=== PATIENT | female | born 1955 | race Two or more races ===

== ENCOUNTER 2019-12-28 13:47 | Outpatient (REF) | payer OTHER, SELFPAY | END 2019-12-28 13:48 | disposition home or self-care (01) | LOC: HO.LAB 13:47 | PROVIDERS: PCP Internal Medicine; Visit Provider Internal Medicine | DX: Z20.828 Contact with and (suspected) exposure to other viral communicable diseases (principal) | CPT/HCPCS: C9803; U0003 ==

== ENCOUNTER 2020-03-30 10:00 | Outpatient (RCR) | payer OTHER, SELFPAY | END 2020-05-15 13:45 | disposition other institution (70) | LOC: HO.PT 10:00 | PROVIDERS: Visit Provider Internal Medicine | DX: M54.5 Low back pain (principal); M54.2 Cervicalgia; M25.561 Pain in right knee | CPT/HCPCS: 97014; 97110; 97140; 97162; 97530 ==

== ENCOUNTER 2020-04-17 10:05 | Outpatient (REF) | payer OTHER, SELFPAY ==
--- NOTE | ~2020-04-17 | US_ITS ---
EXAMINATION: US RETROPERITONEAL LIMITED (RENAL ONLY) CLINICAL INFORMATION: Chronic kidney disease stage II. COMPARISON: None TECHNIQUE: Real-time imaging of the kidneys. FINDINGS: RIGHT KIDNEY: 9.4 x 4.7 x 4.8 cm (SAG x AP x TRV). The kidney is normal in size, contour, and echogenicity. Renal cortical thickness is normal. No calculi or focal parenchymal lesions. No hydronephrosis. LEFT KIDNEY: 9.5 x 4.9 x 5.1 cm (SAG x AP x TRV). The kidney is normal in size, contour, and echogenicity. Renal cortical thickness is normal. There is a 1 cm cyst in the lower pole. No renal calculi or hydronephrosis. US/US renal BI IMPRESSION: Small left renal cyst otherwise unremarkable exam.
== END 2020-04-17 10:06 | disposition home or self-care (01) ==
LOC: HO.US 10:05
PROVIDERS: PCP Internal Medicine; Visit Provider Psychiatry & Neurology Neurology
DX: N18.2 Chronic kidney disease, stage 2 (mild) (principal)
CPT/HCPCS: 76775

== ENCOUNTER 2020-04-24 10:22 | Outpatient (REF) | payer OTHER, SELFPAY | END 2020-04-24 10:23 | disposition home or self-care (01) | LOC: HO.LAB 10:22 | PROVIDERS: Visit Provider Internal Medicine | DX: Z20.822 Contact with and (suspected) exposure to COVID-19 (principal) | CPT/HCPCS: 36415; C9803; U0003; U0005 ==

== ENCOUNTER → 2020-06-13 13:18 | Outpatient (BNVA) | payer MEDICARE, SELFPAY | PROVIDERS: Visit Provider Physician Assistant | DX: Z13.89 Encounter for screening for other disorder (principal) | CPT/HCPCS: Q3014 ==

== ENCOUNTER 2020-06-23 10:06 | Outpatient (REF) | payer MEDICARE, SELFPAY ==
--- NOTE | ~2020-06-23 | MM_ITS ---
EXAMINATION: MM SCREENING DIGITAL BREAST TOMOSYNTHESIS, BILATERAL CLINICAL INFORMATION: Screening. Asymptomatic. The lifetime risk of breast cancer based on the Tyrer-Cuzick Model is 7%. COMPARISON: Mammography: 03/23/2019, outside exam 09/19/2017 08/08/2016, 08/04/2015 ([place], [place]). TECHNIQUE: Digital breast tomosynthesis is performed in both the craniocaudal and mediolateral oblique views along with computer-aided detection (CAD). Synthesized 2D images are generated from the tomosynthesis. FINDINGS: There are scattered areas of fibroglandular density (ACR BI-RADS breast composition Category b). Parenchymal pattern is similar to prior studies. There is no significant mass or architectural abnormality or abnormal calcifications. Again, there are stable nodules with coarse peripheral and rim calcification anterior 3:00 left breast and 2 on right at anterior and mid 9:00 position. There are vascular calcifications. The axilla and skin contours are unremarkable. MM/MM tomosynthesis screening BI IMPRESSION: No mammographic evidence of malignancy. ASSESSMENT: BI-RADS 2: Benign RECOMMENDATION: Routine annual mammography screening. This patient's information was entered into a reminder system with a target due date for their next mammogram.
== END 2020-06-23 10:07 | disposition home or self-care (01) ==
LOC: HO.MAMMO 10:06
PROVIDERS: PCP Internal Medicine; Visit Provider Internal Medicine
DX: Z12.31 Encounter for screening mammogram for malignant neoplasm of breast (principal)
CPT/HCPCS: 77063; 77067

== ENCOUNTER 2020-12-01 14:19 | Outpatient (REF) | payer MEDICARE, SELFPAY ==
[2020-12-01 15:27] LABS: Anion Gap 11 (12-20); Blood Urea Nitrogen 9 mg/dL (9-16); Calcium 9.4 mg/dL (8.4-10.2); Carbon Dioxide 27 mmol/L (22-29); Chloride 106 mmol/L (96-108); Estimated Glomerular Filt Rate 56; Glucose Random 114 mg/dL (60-115); Potassium 3.9 mmol/L (3.3-5.1); Sodium 140 mmol/L (135-145)
== END 2020-12-01 14:20 | disposition home or self-care (01) ==
LOC: HO.LAB 14:19
PROVIDERS: Internal Medicine Hypertension Specialist; Visit Provider Psychiatry & Neurology Neurology
DX: N18.2 Chronic kidney disease, stage 2 (mild) (principal)
CPT/HCPCS: 36415; 80048

== ENCOUNTER 2020-12-02 09:38 | Outpatient (REF) | payer MEDICARE, SELFPAY ==
[2020-12-02 10:05] LABS: Appearance Urine CLOUDY; Color Urine YELLOW; Glucose Urine UA NEG (NEG); Leukocyte Esterase Urine NEG (NEG); Nitrite Urine NEG (NEG); Specific Gravity - Urine 1.025 (1.005-1.025); Urine Blood TRACE (NEG); Urine Ketones NEG (NEG); Urine Protein TRACE MG/DL (NEG-TRACE)
[2020-12-02 10:23] LABS: Bacteria Urine 2+ /LPF; RBC Urine 0-2 /HPF (0); Squamous Epithelial Cell Urine 3+ /LPF; WBC Urine 0 /HPF (0-4)
== END 2020-12-02 09:39 | disposition home or self-care (01) ==
LOC: HO.LNP 09:38
PROVIDERS: Visit Provider Internal Medicine Hypertension Specialist
DX: N18.2 Chronic kidney disease, stage 2 (mild) (principal)
CPT/HCPCS: 81001; 81003; 84156

== ENCOUNTER 2021-06-26 11:38 | Outpatient (REF) | payer OTHER, SELFPAY ==
--- NOTE | ~2021-06-26 | MM_ITS ---
EXAMINATION: MM SCREENING DIGITAL BREAST TOMOSYNTHESIS, BILATERAL CLINICAL INFORMATION: Screening. Asymptomatic. The lifetime risk of breast cancer based on the Tyrer-Cuzick Model is 7%. COMPARISON: Mammography: 06/23/2020, 03/23/2019, outside mammography 09/19/2017 and 08/08/2016 ([facility], [place], [place]). TECHNIQUE: Digital breast tomosynthesis is performed in both the craniocaudal and mediolateral oblique views along with computer-aided detection (CAD). Synthesized 2D images are generated from the tomosynthesis. FINDINGS: There are scattered areas of fibroglandular density (ACR BI-RADS breast composition Category b). Parenchymal pattern is similar to prior exams and there is no interval significant mass, developing density, or architectural abnormality. Again, there are scattered chronic bilateral smooth nodules with benign coarse peripheral calcification. Bilateral vascular calcifications again noted. The axilla and skin contours are unremarkable. No significant changes. MM/MM tomosynthesis screening BI IMPRESSION: No significant changes from prior exams. ASSESSMENT: BI-RADS 2: Benign RECOMMENDATION: Routine annual mammography screening. This patient's information was entered into a reminder system with a target due date for their next mammogram.
== END 2021-06-26 11:39 | disposition home or self-care (01) ==
LOC: HO.MAMMO 11:38
PROVIDERS: PCP Internal Medicine; Visit Provider Internal Medicine
DX: Z12.31 Encounter for screening mammogram for malignant neoplasm of breast (principal)
CPT/HCPCS: 77063; 77067

== ENCOUNTER 2021-07-29 12:27 | Emergency (ER) | payer OTHER, SELFPAY ==
[2021-07-29] VITALS (7 sets, daily range): BP systolic 126–164; BP diastolic 76–96; PULSE 76–103; RESP 14–18; TEMP 36.1–37; O2SAT 97–99; BMI 29.2
--- NOTE | 2021-07-29 12:32 | ECG_ITS ---
Test Reason : DIZZINESS Blood Pressure : / mmHG Vent. Rate : 078 BPM Atrial Rate : 078 BPM P-R Int : 124 ms QRS Dur : 088 ms QT Int : 392 ms P-R-T Axes : 039 042 -42 degrees QTc Int : 446 ms Normal sinus rhythm Nonspecific ST and T wave abnormality Abnormal ECG When compared to the previous EKG of No significant changes seen Referred By: Generic ED Physician Electronically Signed By:Tato Muse
[2021-07-29 12:57] LABS: MANUAL DIFF FLAG NO
[2021-07-29 12:58] LABS: Basophils Percent Auto 0.1 % (0-2); Eosinophils Percent Auto 0.4 % (0-4); Hemoglobin 13.4 g/dl (12.0-16.0); Imm Gran Abs Auto 0.09 X10*3/uL (0.00-0.03); Lymphocytes Absolute Auto 1.3 X10*3/uL (1.2-4.9); Lymphocytes Percent Auto 14.3 % (20-40); Mean Corpuscular HGB Conc 33.5 g/dl (31.0-35.0); Mean Corpuscular Hemoglobin 31.1 pg (27.0-33.0); Mean Corpuscular Volume 92.8 fL (80.0-98.0); Mean Platelet Volume 10.2 fL (9.4-12.3); Monocytes Absolute Auto 0.4 X10*3/uL (0.1-1.2); Monocytes Percent Auto 4.5 % (2-11); Neutrophils Absolute Auto 7.4 x10*3/uL (2.0-8.3); Neutrophils Percent Auto 79.7 % (45-73); Platelet Count 218 X10*3/uL (160-400); Red Blood Count 4.31 X10*6/uL (4.20-5.50); Red Cell Distribution Width 12.5 % (11.0-16.0); White Blood Count 9.3 X10*3/uL (4.8-10.8)
[2021-07-29 13:11] LABS: Anion Gap 14 (12-20); Blood Urea Nitrogen 9 mg/dL (9-16); Calcium 9.4 mg/dL (8.4-10.2); Carbon Dioxide 22 mmol/L (22-29); Chloride 106 mmol/L (96-108); Creatinine Clr Calc Pharmacy 59.5; Estimated Glomerular Filt Rate > 60; Glucose Random 142 mg/dL (60-115); Potassium 3.9 mmol/L (3.3-5.1); Sodium 138 mmol/L (135-145)
--- NOTE | 2021-07-29 16:59 | PC.NURSE ---
Per pt daughter, pt is a poor historian. she states that Pt also with lack of appetite for a few month. Pt also been having intermittent diarrhea over a few months.
--- NOTE | 2021-07-29 17:43 | ED.DIZZY ---
HPI - Dizziness General Chief Complaint: Dizziness Stated Complaint: dizziness Time Seen by Provider: 07/29/21 17:33 Source: patient Mode of arrival: ambulatory Limitations: no limitations History of Present Illness HPI Narrative: 65-year-old female history of vertigo presents to the emergency department with complaints of nausea, vomiting, dizziness and diarrhea. Patient tells me that nausea, vomiting, and dizziness started today suddenly, she tells me she feels like the room is spinning, was unable to ambulate, she tells me it is worse with positional changes like going from sitting to standing, and quick movements. She reports she has had an episode like this in the past, she was seen in the emergency department for this it was vertigo. Patient reports that she has been having diarrhea for the past 3 months and she is unsure why, she tells me everything she eats ?goes through me ?. Patient has not been evaluated for this before. She tells me her stools completely liquid in brown. Denies any recent antibiotic use. Denies abdominal pain associated with this. Patient is not on blood thinners, no head trauma. Reports this is similar to a previous episode. Denies chest pain, shortness of breath, fevers, chills, abdominal pain, hematemesis, hematochezia, weakness, head trauma MD elicited complaint: dizziness, difficulty walking and vertigo Pertinent past history: other (Vertigo) Onset (ago): day(s) (1) Timing: awoke with symptoms Severity: severe Description: sense of movement, room spinning , off-balance and difficulty walking Context: change in body position and other (Poor p.o. intake.) History of similar symptoms: Yes Exacerbating factors: movement/ambulation and change in body position Relieving factors: nothing Associated symptoms: nausea and vomiting Related Data Home Medications Medication Instructions Recorded Confirmed ergocalciferol (vitamin D2) 1,250 1,250 mcg PO QWEEK 06/13/20 06/13/20 mcg (50,000 unit) capsule loratadine 10 mg tablet 10 mg PO DAILY 06/13/20 06/13/20 Previous Rx's Medication Instructions Recorded meclizine 25 mg tablet 25 mg PO BID PRN dizziness #14 tabs 07/29/21 ondansetron 4 mg disintegrating 4 mg PO Q8H PRN nausea and 07/29/21 tablet vomiting #10 tabs Allergies Allergy/AdvReac Type Severity Reaction Status Date / Time perfume [PERFUME] Allergy Unknown UNKNOWN Unverified 11/04/19 19:48 soap [SOAP] Allergy Unknown UNKNOWN Unverified 11/04/19 19:48 DETERGENT Allergy Unknown UNKNOWN Uncoded 11/04/19 19:48 SEAFOOD Allergy Unknown UNKNOWN Uncoded 11/04/19 19:48 SPICES Allergy Unknown UNKNOWN Uncoded 11/04/19 19:48 Review of Systems Review of Systems: Constitutional : No Weight loss, No Fever, No Chills, No Fatigue, No Malaise ENT/Mouth : No sore throat, No Rhinorrhea Eyes: No Eye Pain, No Swelling, No Redness Cardiovascular : No Chest Pain, No SOB, No Dyspnea on Exertion, No Orthopnea, No Edema, No Palpitations Respiratory : No Cough, No Sputum, No Wheezing Gastrointestinal : + Nausea, + Vomiting, + Diarrhea, No Constipation, No abdominal Pain, No Hematochezia, No Melena Genitourinary : No Dysuria, No Urinary Frequency, No Hematuria, Musculoskeletal : No joint pain, No Myalgias, No Joint Swelling Skin : No Skin Lesions, No rash Neuro : No Weakness, No Numbness, + Dizziness, No Headache All other systems reviewed and are negative Yes all other systems are reviewed and are negative [facility] Past Medical History Attestation statement: The following information was validated with the patient. Source: old records reviewed and nursing notes reviewed Family History Family History Sister Cancer Daughter Breast cancer Social History Social History Household Members: None Alcohol intake: never Advance Directives: No Advance Directives Information Provided: No Current occupational status: retired Physical Exam Vital Signs: Vital Signs: Last Vital Signs Temp 98.6 F 07/29/21 17:44 Pulse 102 H 07/29/21 21:25 Resp 14 07/29/21 19:42 BP 163/86 H 07/29/21 21:25 Pulse Ox 97 07/29/21 19:42 O2 Del Method 07/29/21 19:42 BMI result Body Mass Index 29.2 VSS Appearance: Alert.? Oriented X3.? No acute distress.? Head: Normocephalic, atraumatic, no step-offs or deformities Eyes: Pupils equal, round and reactive to light.? Extraocular movements intact. ENT: Pharynx normal.? Neck: Normal inspection.? Neck supple.? CVS: Normal heart rate and rhythm.? Pulses normal.? Respiratory: No respiratory distress.? Breath sounds normal.? Abdomen: Soft and nontender.? Skin: Skin warm and dry.? Normal skin color.? Normal skin turgor.? Extremities: No lower extremity edema.? No calf ttp. 5/5 strength to bilateral upper and lower extremities Back: No midline tenderness, no C-spine tenderness, full range of motion, no CVA tenderness bilaterally Neuro: Oriented X 3.? No motor deficit.? No sensory deficit. CN 2-12 intact . Normal lrdbcr-ab-[id number], doym-ed-xpui, steady tandem gait. Normal hand event promoter, negative pronator drift. Course Reevaluation(s) Reevaluation #1: Positive orthos patient reports dizziness with positional changes. Time: 17:33 Reevaluation #2: Patient continues to have a nonfocal physical exam. Patient ambulating with steady gait to the bathroom, no dizziness, nausea or vomiting at this time. Patient reports improvement in symptoms and is having negative orthostatics after 2 L of hydration. Also gave patient meclizine. She tells me she is feeling much better and would like to go home. Again normal cerebellar function. At this time I educated patient on worrisome signs and symptoms advised her to return if any of these arise. Comfortable discharge home. Will discharge her home on Zofran, meclizine. And will give her GI follow-up as she has been having diarrhea for 2-3 months. Time: 22:23 [facility] - Dizziness [facility] Narrative Medical decision making narrative: [id number] 65-year-old female presents with complaints of dizziness, nausea, vomiting x 1 day diarrhea times 2-3 months. Physical examination benign. Normal cerebellar function. Patient with normal neuro exam, nonfocal. Plan at this time is to obtain orthostatic vitals, fluids, basic labs, urine. NIH stroke scale 0. Likely BPPV, unlikely posterior infarct as patient has a nonfocal neuro exam and normal cerebellar function. Medical Records Attestation: I reviewed the patient's medical records. Lab Data Attestation: I reviewed the patient's lab results. Result diagrams: 06/12/22 12:48 07/29/21 12:48 Labs: Lab Results 07/29/21 07/29/21 Range/Units 12:48 12:48 WBC 9.3 (4.8-10.8) X10*3/uL RBC 4.31 (4.20-5.50) X10*6/uL Hgb 13.4 (12.0-16.0) g/dl Hct 40.0 (37.0-47.0) % MCV 92.8 (80.0-98.0) fL MCH 31.1 (27.0-33.0) pg MCHC 33.5 (31.0-35.0) g/dl RDW 12.5 (11.0-16.0) % Plt Count 218 (160-400) X10*3/uL MPV 10.2 (9.4-12.3) fL Immature Gran % (Auto) 1.0 H (0.0-0.4) % Neut % (Auto) 79.7 H (45-73) % Lymph % (Auto) 14.3 L (20-40) % Stanley % (Auto) 4.5 (2-11) % Eos % (Auto) 0.4 (0-4) % Baso % (Auto) 0.1 (0-2) % Lymph # (Auto) 1.3 (1.2-4.9) X10*3/uL Stanley # (Auto) 0.4 (0.1-1.2) X10*3/uL Eos # (Auto) 0.0 (0.0-0.4) X10*3/uL Baso # (Auto) 0.0 (0.0-0.2) X10*3/uL Abs Immat Gran (auto) 0.09 H (0.00-0.03) X10*3/uL Absolute Neuts (auto) 7.4 (2.0-8.3) x10*3/uL Absolute Nucleated RBC 0.000 (0.0-0.012) X10*3/uL Nucleated RBC % (auto) 0.0 (0.0-0.2) /100WBC Sodium 138 (135-145) mmol/L Potassium 3.9 (3.3-5.1) mmol/L Chloride 106 (96-108) mmol/L Carbon Dioxide 22 (22-29) mmol/L Anion Gap 14 (12-20) BUN 9 (9-16) mg/dL Creatinine 0.90 (0.5-1.4) mg/dL Estim Creat Clear Calc 59.5 Estimated GFR > 60 Random Glucose 142 H (60-115) mg/dL Calcium 9.4 (8.4-10.2) mg/dL Critical Care Time Critical Care Time Critical Care Time: No Discharge Plan Discharge Clinical Impression: Benign paroxysmal positional vertigo, Orthostatic hypotension, Diarrhea Patient Disposition: Home, Self-Care Instructions: Vertigo (ED), Acute Diarrhea (ED) Additional Instructions: Take your medications as prescribed. If you were prescribed antibiotics today, it is important that you take your medication to their entirety, do not skip any doses, do not finish them early. Follow-up with your primary care provider this week. Since he has been having diarrhea for a few months is important that you follow-up with GI. Return to the emergency department with new or worsening symptoms. Such as fevers, chills, chest pain, shortness of breath, nausea, vomiting, dizziness, headache, vision changes, lethargy, weakness, slurred speech. In case of emergency call 911 I will send meclizine to your pharmacy medication for vertigo. And I will also send Zofran, for nausea vomiting, it is important that you only take this as prescribed, taking more than the prescribed dose could lead to adverse effects. Prescriptions: New meclizine 25 mg tablet 25 mg PO BID PRN (Reason: dizziness) Qty: 14 0RF ondansetron 4 mg tablet,disintegrating 4 mg PO Q8H PRN (Reason: nausea and vomiting) Qty: 10 0RF No Action loratadine 10 mg tablet 10 mg PO DAILY ergocalciferol (vitamin D2) 1,250 mcg (50,000 unit) capsule 1,250 mcg PO QWEEK Referrals: Yary Mack MD [Primary Care Provider] - 2 days Le Montes De Oca MD [Physician] - 2 days Stand Alone Forms: Work/School Release Interventions: ED Discharge Assessment Last Done: 07/29/21 22:35 Discharge Date/Time: 07/29/21 22:36
[2021-07-29] MEDS: 0.9 % Sodium Chloride 1,000 ML 999 ML IV ×2 (17:58→19:34)
[2021-07-29] MEDS: Loperamide HCl 2 MG CAPSULE PO (19:34)
--- NOTE | 2021-07-29 19:39 | PC.NURSE ---
Pt given medications per EMR, Saline running.
--- NOTE | 2021-07-29 20:53 | PC.NURSE ---
Pt able to ambulate to bathroom with steady gait. States she feels less dizzy than before. Approximately 10 minutes left on fluids, will repeat orthostatic vitals.
[2021-07-29] MEDS: Meclizine HCl 25 MG TABLET PO (22:23)
--- NOTE | 2021-07-29 22:33 | PC.NURSE ---
Discharged at this time. The pt verbalized an understanding of all dc orders and she ambulated out of the ED independently and with steady gait. I assumed nursing care of Muriel at 1900. since that time she has been alert, oriented x 3 with family at the bedside. IVFs infused and pt ambulated multiple times to the bathroom to void without difficulty. As her ER visit progressed and as 2L of NS were finishing she admitted to much less lightheadedness/dizziness. At time of DC she denies any dizziness. In addition, there has been no chest pain or SOB.
== END 2021-07-29 22:36 | disposition home or self-care (01) ==
PROVIDERS: Emergency Provider Emergency Medicine; PCP Internal Medicine
DX: H81.10 Benign paroxysmal vertigo, unspecified ear (principal); I95.1 Orthostatic hypotension; R19.7 Diarrhea, unspecified
CPT/HCPCS: 36415; 80048; 85025; 93005; 96361; 96374; 99284

== ENCOUNTER → 2021-08-21 10:23 | Outpatient (BNVA) | payer OTHER, SELFPAY | PROVIDERS: PCP Internal Medicine; Visit Provider Physician Assistant | DX: K52.9 Noninfective gastroenteritis and colitis, unspecified (principal); Z79.899 Other long term (current) drug therapy | CPT/HCPCS: Q3014 ==

== ENCOUNTER → 2021-10-10 10:59 | Outpatient (BNVA) | payer OTHER, SELFPAY | PROVIDERS: PCP Internal Medicine; Visit Provider Physician Assistant | DX: K52.9 Noninfective gastroenteritis and colitis, unspecified (principal) | CPT/HCPCS: Q3014 ==

== ENCOUNTER 2022-01-25 11:00 | Outpatient (RCR) | payer OTHER, SELFPAY | END 2022-03-19 13:47 | disposition home or self-care (01) | LOC: HO.PT 11:00 | PROVIDERS: PCP Internal Medicine; Visit Provider Internal Medicine | DX: M54.50 Low back pain, unspecified (principal) | CPT/HCPCS: 97110; 97112; 97140; 97162 ==

== ENCOUNTER 2022-03-20 10:39 | Outpatient (REF) | payer OTHER, SELFPAY | END 2022-03-20 10:40 | disposition home or self-care (01) | LOC: HO.MRI 10:39 | PROVIDERS: PCP Internal Medicine; Visit Provider Psychiatry & Neurology Neurology | DX: Z13.89 Encounter for screening for other disorder (principal) ==

== ENCOUNTER 2022-07-02 11:22 | Outpatient (REF) | payer OTHER, SELFPAY ==
--- NOTE | ~2022-07-02 | MM_ITS ---
EXAMINATION: MM SCREENING DIGITAL BREAST TOMOSYNTHESIS, BILATERAL CLINICAL INFORMATION: Screening. Asymptomatic. The lifetime risk of breast cancer based on the Tyrer-Cuzick Model is 7%. COMPARISON: Mammography: 06/26/2021, 06/23/2020, 03/23/2019 TECHNIQUE: Digital breast tomosynthesis is performed in both the craniocaudal and mediolateral oblique views along with computer-aided detection (CAD). Synthesized 2D images are generated from the tomosynthesis. FINDINGS: There are scattered areas of fibroglandular density (ACR BI-RADS breast composition Category b). There are no significant masses, abnormal calcifications, or other abnormalities. Parenchymal pattern is similar to prior exams. Scattered benign nodularity and benign coarse and vascular calcifications are similar to prior exams. No architectural abnormality or developing density. The axilla and skin contours are unremarkable. MM/MM tomosynthesis screening BI IMPRESSION: No mammographic evidence of malignancy. ASSESSMENT: BI-RADS 2: Benign RECOMMENDATION: Routine annual mammography screening. This patient's information was entered into a reminder system with a target due date for their next mammogram.
== END 2022-07-02 11:23 | disposition home or self-care (01) ==
LOC: HO.MAMMO 11:22
PROVIDERS: PCP Internal Medicine; Visit Provider Internal Medicine
DX: Z12.31 Encounter for screening mammogram for malignant neoplasm of breast (principal)
CPT/HCPCS: 77063; 77067

== ENCOUNTER 2022-08-15 15:25 | Outpatient (REF) | payer OTHER, SELFPAY ==
--- NOTE | ~2022-08-15 | XR_ITS ---
EXAMINATION: XR LUMBOSACRAL SPINE CLINICAL INFORMATION: Reason for Exam PAIN COMPARISON: None TECHNIQUE: 3 views of the lumbar spine FINDINGS: 5 nonrib-bearing lumbar-type vertebral bodies. Vertebral body heights are maintained. Dextroconvex curvature of the lumbar spine. Moderate to advanced multilevel degenerative disc disease with loss of disc space height and facet arthropathy worst at L3-L4. Paravertebral soft tissues are unremarkable. XR/XR lumbar spine 2-3V IMPRESSION: 1. Dextroconvex curvature of the lumbar spine. 2. Moderate to advanced multilevel degenerative disc disease with loss of disc space height and facet arthropathy.
== END 2022-08-15 15:26 | disposition home or self-care (01) ==
LOC: HO.HHCX 15:25
PROVIDERS: Visit Provider Registered Nurse
DX: M54.50 Low back pain, unspecified (principal)
CPT/HCPCS: 72100

== ENCOUNTER 2022-08-23 09:39 | Outpatient (REF) | payer OTHER, SELFPAY | END 2022-08-23 09:40 | disposition home or self-care (01) | LOC: HO.CT 09:39 | PROVIDERS: PCP Internal Medicine; Visit Provider Psychiatry & Neurology Neurology | DX: G93.40 Encephalopathy, unspecified (principal) | CPT/HCPCS: 70450 ==

== ENCOUNTER 2022-10-04 13:41 | Outpatient (RCR) | payer OTHER, SELFPAY ==
--- NOTE | 2023-03-18 11:29 | MHC.PT.DC ---
[facility] [place] Office [place] Office [place] Office [address] [phone] F: [phone] F: [phone] F: [phone] F: [phone] Physical Therapy Discharge Report Diagnosis: LBP Date of Surgery: N/A Date of Evaluation: 10/04/22 Date of Discharge: 03/18/23 Treatments to Date: 1 Cancellations to Date: 2 No Shows to Date: 2 Discharge Status: Visit Non-compliance Discharge Summary: Pt is a 67yo female who presents with chronic low back pain. Pt reports this has been going on for a long period of time, but now it is impacting her mobility. Skilled PT indicated to address pain, promote ROM and core strength, improve posture and body mechanics, to improve overall mobility. Pt did not f/u with additional appointments following initial eval and treatment. D/C due to attendance policy. Electronically signed by: Cesilia Cano PT, DPT Please sign and return to therapist. Thank you for your referral.
== END 2023-03-18 11:30 | disposition home or self-care (01) ==
LOC: HO.PT 13:41
PROVIDERS: PCP Internal Medicine; Visit Provider Registered Nurse
DX: M54.50 Low back pain, unspecified (principal); G89.29 Other chronic pain
CPT/HCPCS: 97014; 97110; 97162

== ENCOUNTER 2023-03-27 13:00 | Outpatient (REF) | payer OTHER, SELFPAY ==
[2023-03-30 17:09] LABS: TS Negative Control Passed; TS Panel A 0; TS Panel B 0; TS Positive Control Passed; TSpotTB Negative (Negative)
== END 2023-03-27 13:01 | disposition home or self-care (01) ==
LOC: HO.HHCL 13:00
PROVIDERS: Visit Provider Internal Medicine
DX: Z11.1 Encounter for screening for respiratory tuberculosis (principal)
CPT/HCPCS: 36415; 86481

== ENCOUNTER 2023-05-09 11:16 | Outpatient (REF) | payer OTHER, SELFPAY ==
[2023-05-09 13:16] LABS: MANUAL DIFF FLAG NO
[2023-05-09 13:18] LABS: Basophils Percent Auto 0.6 % (0-2); Eosinophils Absolute Auto 0.1 X10*3/uL (0.0-0.4); Eosinophils Percent Auto 2.2 % (0-4); Hematocrit 41.2 % (37.0-47.0); Hemoglobin 13.7 g/dl (12.0-16.0); Imm Gran Abs Auto 0.01 X10*3/uL (0.00-0.03); Imm Gran Pct Auto 0.2 % (0.0-0.4); Lymphocytes Absolute Auto 1.9 X10*3/uL (1.2-4.9); Mean Corpuscular HGB Conc 33.3 g/dl (31.0-35.0); Mean Corpuscular Hemoglobin 31.6 pg (27.0-33.0); Mean Corpuscular Volume 94.9 fL (80.0-98.0); Mean Platelet Volume 10.7 fL (9.4-12.3); Monocytes Absolute Auto 0.3 X10*3/uL (0.1-1.2); Monocytes Percent Auto 6.3 % (2-11); Neutrophils Absolute Auto 2.7 x10*3/uL (2.0-8.3); Neutrophils Percent Auto 52.7 % (45-73); Platelet Count 261 X10*3/uL (160-400); Red Blood Count 4.34 X10*6/uL (4.20-5.50); Red Cell Distribution Width 12.6 % (11.0-16.0); White Blood Count 5.1 X10*3/uL (4.8-10.8)
[2023-05-09 13:36] LABS: Estimated Average Glucose 97 mg/dL
[2023-05-09 13:42] LABS: Anion Gap 11 (12-20); Blood Urea Nitrogen 9 mg/dL (9-16); Calcium 9.8 mg/dL (8.4-10.2); Carbon Dioxide 30 mmol/L (22-29); Chloride 103 mmol/L (96-108); Estimated Glomerular Filt Rate > 60; Glucose Random 85 mg/dL (60-115); Potassium 3.8 mmol/L (3.3-5.1); Sodium 140 mmol/L (135-145)
[2023-05-09 13:52] LABS: TSH reflex Free T4 1.81 uIU/mL (0.32-4.0); Vitamin D 25-OH Total 35.7 ng/mL (>30)
== END 2023-05-09 11:17 | disposition home or self-care (01) ==
LOC: HO.HHCL 11:16
PROVIDERS: Visit Provider Internal Medicine
DX: Z00.00 Encounter for general adult medical examination without abnormal findings (principal); Z13.1 Encounter for screening for diabetes mellitus; Z13.29 Encounter for screening for other suspected endocrine disorder; Z13.21 Encounter for screening for nutritional disorder
CPT/HCPCS: 36415; 80048; 82306; 83036; 84443; 85025

== ENCOUNTER 2023-06-18 10:03 | Outpatient (REF) | payer OTHER, SELFPAY ==
--- NOTE | ~2023-06-18 | MM_ITS ---
EXAMINATION: BONE DENSITOMETRY CLINICAL INDICATION: Asymptomatic menopausal state. Post menopausal. COMPARISON: Baseline BD dated 03/23/2019. TECHNIQUE: Using a NPR DXA System (software version: 13.1) manufactured by [employer], dual-energy x-ray absorptiometry was performed of the lumbar spine and left hip. The images are of good technical quality. Summary results are attached. FINDINGS: AP SPINE L1-L2 (excluding L3 and L4): The data of L1-L4 has been changed to exclude the L3 and L4 vertebral bodies, because degenerative sclerosis at these levels may cause overestimation of lumbar spine density. Current: BMD 0.917 g/cm2, Z-score -0.7, T-score -2.1, osteopenia, 3.6% decrease from baseline (<5% change is not significant). Baseline: BMD 0.951 g/cm2. LEFT FEMUR, NECK: Current: BMD 0.814 g/cm2, Z-score -0.2, T-score -1.6, osteopenia. Baseline: BMD 0.837 g/cm2. LEFT FEMUR, TOTAL: Current: BMD 0.950 g/cm2, Z-score 0.7, T-score -0.5, normal, 0.7% decrease from baseline (<5% change is not significant). Baseline: BMD 0.957 g/cm2. IDENTIFIED RISK FACTORS: Menopause. HISTORY OF FRACTURE: None listed. MEDICATIONS: Calcium supplement and/or multivitamin. Vitamin D. MM/XR DEXA axial skeleton IMPRESSION: 1. DIAGNOSIS: Osteopenia based on the lowest T-score value of -2.1 in the lumbar spine applying World Health Organization criteria. 2. 10-YEAR FRACTURE RISK PREDICTION, FRAX: Major osteoporotic fracture (clinical spine, forearm, hip or shoulder) 5.5%. Hip fracture 0.8%. 3. Treatment Recommendations: NOF guidelines recommend consideration for treatment in postmenopausal women and men age 50 and older presenting with the following: -A hip or vertebral (clinical or morphometric) fracture. -T-score less than or equal to -2.5 at the femoral neck or spine after appropriate evaluation to exclude secondary causes. -Low bone mass at the hip or spine and a 10-year fracture probability by FRAX of greater than or equal to 3% for hip fracture or greater than or equal to 20% for major osteoporotic fracture based on the [place] adapted WHO algorithm. 4. Other Recommendations: All treatment decisions require clinical judgment and consideration of individual patient factors, including patient preferences, comorbidities, previous drug use, risk factors not captured in the FRAX model (e.g. frailty, falls, vitamin D deficiency, increased bone turnover, interval significant decline in bone density) and possible under or overestimation of fracture risk by FRAX. Additional medical evaluation for secondary cause of low bone mineral density may be appropriate. FUTURE SCAN RECOMMENDATION: People with diagnosed cases of osteoporosis or at high risk for fracture should have regular bone mineral density tests. For patients eligible for Medicare, routine testing is allowed once every 2 years. The testing frequency can be increased to one year for patients who have rapidly progressing disease, those who are receiving or discontinuing medical therapy to restore bone mass, or have additional risk factors.
== END 2023-06-18 10:04 | disposition home or self-care (01) ==
LOC: HO.MAMMO 10:03
PROVIDERS: PCP Internal Medicine; Visit Provider Internal Medicine
DX: Z13.820 Encounter for screening for osteoporosis (principal); Z78.0 Asymptomatic menopausal state
CPT/HCPCS: 77080

== ENCOUNTER 2023-07-08 10:28 | Outpatient (REF) | payer OTHER, SELFPAY ==
--- NOTE | ~2023-07-08 | MM_ITS ---
EXAMINATION: MM SCREENING DIGITAL BREAST TOMOSYNTHESIS, BILATERAL CLINICAL INFORMATION: Screening. Asymptomatic. COMPARISON: Mammography: This study is compared with prior exams dating back to 2017. TECHNIQUE: Digital breast tomosynthesis is performed in both the craniocaudal and mediolateral oblique views along with computer-aided detection (CAD). Synthesized 2D images are generated from the tomosynthesis. FINDINGS: There are scattered areas of fibroglandular density (ACR BI-RADS breast composition Category b). There are no significant masses, abnormal calcifications, or other abnormalities. Benign calcifications in each breast. MM/MM tomosynthesis screening BI IMPRESSION: No mammographic evidence of malignancy. ASSESSMENT: BI-RADS BI-RADS 2 - Benign Findings RECOMMENDATION: Routine annual mammography screening. 1 year F/U This examination should not preclude the clinical evaluation of a suspicious palpable abnormality. This patient's information was entered into a reminder system with a target due date for their next mammogram.
== END 2023-07-08 10:29 | disposition home or self-care (01) ==
LOC: HO.MAMMO 10:28
PROVIDERS: PCP Internal Medicine; Visit Provider Internal Medicine
DX: Z12.31 Encounter for screening mammogram for malignant neoplasm of breast (principal)
CPT/HCPCS: 77063; 77067

== ENCOUNTER → 2023-07-08 10:45 | Outpatient (BNV) | payer OTHER, SELFPAY | PROVIDERS: PCP Internal Medicine; Visit Provider Radiology Diagnostic Radiology | DX: Z12.31 Encounter for screening mammogram for malignant neoplasm of breast (principal) | CPT/HCPCS: 77063; 77067 ==

== ENCOUNTER 2023-09-12 13:21 | Outpatient (REF) | payer OTHER, SELFPAY ==
--- NOTE | ~2023-09-12 | XR_ITS ---
EXAMINATION: XR RIGHT HIP XR RIGHT KNEE CLINICAL INFORMATION: 2 weeks of ongoing right hip and right knee pain. COMPARISON: None available. TECHNIQUE: AP, lateral and tunnel views of the right knee were obtained. AP and frog-leg lateral views of the right hip were obtained. FINDINGS: Right hip: Alignment is anatomic. No significant cartilage space loss. No displaced fracture or dislocation. Right knee: Alignment is anatomic. Mild medial tibiofemoral joint space narrowing. No significant joint effusion. XR/XR knee RT 3V IMPRESSION: No acute abnormality.
--- NOTE | ~2023-09-12 | XR_ITS ---
EXAMINATION: XR RIGHT HIP XR RIGHT KNEE CLINICAL INFORMATION: 2 weeks of ongoing right hip and right knee pain. COMPARISON: None available. TECHNIQUE: AP, lateral and tunnel views of the right knee were obtained. AP and frog-leg lateral views of the right hip were obtained. FINDINGS: Right hip: Alignment is anatomic. No significant cartilage space loss. No displaced fracture or dislocation. Right knee: Alignment is anatomic. Mild medial tibiofemoral joint space narrowing. No significant joint effusion. XR/XR hip RT min 2V IMPRESSION: No acute abnormality.
== END 2023-09-12 13:22 | disposition home or self-care (01) ==
LOC: HO.HHCX 13:21
PROVIDERS: Visit Provider Student in an Organized Health Care Education/Training Program
DX: M25.551 Pain in right hip (principal); M25.561 Pain in right knee
CPT/HCPCS: 73502; 73562

== ENCOUNTER 2024-02-20 13:59 | Outpatient (RCR) | payer OTHER, SELFPAY | END 2024-03-19 14:33 | disposition home or self-care (01) | LOC: HO.PT 13:59 | PROVIDERS: PCP Internal Medicine; Visit Provider Internal Medicine | DX: M54.50 Low back pain, unspecified (principal); M25.561 Pain in right knee | CPT/HCPCS: 97110; 97161 ==

== ENCOUNTER 2024-02-24 12:12 | Emergency (ER) | payer OTHER, SELFPAY ==
[2024-02-24 12:23] VITALS: BP 122/68; PULSE 79; O2SAT 95
[2024-02-24 12:59] VITALS: BP 124/68; PULSE 80; RESP 98; TEMP 37.6; O2SAT 98; BMI 28.3
--- NOTE | 2024-02-24 13:02 | ED_ITS ---
HPI - General Adult General Chief complaint: General Medical Stated complaint: COVID, DIZZINESS Time Seen by Provider: 02/24/24 15:15 Source: patient and EMS Mode of arrival: EMS Limitations: no limitations History of Present Illness ED Provider: Julio Bone PA-C HPI narrative: 68 yo female presents to the ER from Urgent Care for evaluation of poor PO intake in the setting of COVID-19. Patient has not been feeling well for the last 3 days. She lives home alone. She reports coughing, sneezing, headaches, body aches and decreased p.o. intake along with nonbloody diarrhea. No vomiting, abdominal pain, chest pain or difficulty breathing. No fevers. She went to urgent care today where she was found to be COVID-19 positive. They sent her to the ER for further evaluation of malaise and decreased p.o. intake. MD complaint: Decreased p.o. intake, weakness Onset (ago): day(s) Relieving factors: none Exacerbating factors: none Associated symptoms: denies other symptoms Treatments prior to arrival: none Related Data Home Medications ?Medication ?Instructions ?Recorded ?Confirmed ergocalciferol (vitamin D2) 1,250 1,250 mcg PO QWEEK 06/13/20 10/10/21 mcg (50,000 unit) capsule loratadine 10 mg tablet 10 mg PO DAILY 06/13/20 10/10/21 Previous Rx's ?Medication ?Instructions ?Recorded meclizine 25 mg tablet 25 mg PO BID PRN dizziness #14 tabs 07/29/21 ondansetron 4 mg disintegrating 4 mg PO Q8H PRN nausea and 07/29/21 tablet vomiting #10 tabs Allergies Allergy/AdvReac Type Severity Reaction Status Date / Time perfume [PERFUME] Allergy Unknown UNKNOWN Verified 02/24/24 13:00 soap [SOAP] Allergy Unknown UNKNOWN Verified 02/24/24 13:00 DETERGENT Allergy Unknown UNKNOWN Uncoded 11/04/19 19:48 SEAFOOD Allergy Unknown UNKNOWN Uncoded 11/04/19 19:48 SPICES Allergy Unknown UNKNOWN Uncoded 11/04/19 19:48 Review of Systems 2 Review of Systems: Yes all other systems are reviewed and are negative PMFSH Family History Family History Sister Cancer Daughter Breast cancer Social History Social History Household Members: None Alcohol intake: never Advance Directives: No Advance Directives Information Provided: Yes Current occupational status: retired Physical Exam ED Vital Signs: Vital Signs - 24 hr 02/24/24 12:59 02/24/24 16:10 02/24/24 16:40 Temperature 99.6 F 99 F 99 F Pulse Rate 80 82 82 Respiratory Rate 98 H 19 19 Blood Pressure 124/68 128/68 128/68 Pulse Oximetry 98 98 98 Oxygen Delivery Method Room Air Room Air Room Air BMI result Body Mass Index 28.3 Appearance: Alert. Oriented X3. No acute distress. Head: normocephalic, atraumatic. Eyes: Pupils equal, round and reactive to light. Neck: Normal inspection. CVS: Normal heart rate and rhythm. Pulses normal. Respiratory: No respiratory distress. Breath sounds normal. Abdomen: Soft and nontender. +BS x4 Skin: Skin warm and dry. Normal skin color. Normal skin turgor. No rashes. Extremities: No lower extremity edema. No joint swelling. Neuro/psych: Oriented X 3. Grossly normal, nonfocal, steady gait Course Course Course Narrative: RME: 58-year-old female tested positive for COVID today presents to ED for fatigue, sinus pain, headache, diarrhea, and not eating for the past 2 days. Patient was sent for urgent care for evaluation. Patient is not toxic. Informed of supportive care but will do labs make sure there was no dehydration due to patient not eating food for the past couple of days. Medical Decision Making Medical Decision Making MDM Narrative: 68-year-old female presents to the ER from urgent care for evaluation generalized weakness, poor p.o. intake in the setting of being found to be COVID positive today. Vital signs are stable. Physical exam is unremarkable. Basic lab workup is reassuring with no major metabolic derangement, no anemia, no leukocytosis. Patient given p.o. michael ricardo and crackers in the ER and tolerated well. She denies any associated nausea or abdominal pain. At this time comfortable discharge home with supportive care. We discussed the importance of adequate oral hydration, symptomatic management of COVID and return precautions. She is stable for discharge home with outpatient follow-up as needed. Differential Diagnosis Differential Diagnoses: The differential diagnosis associated with the presentation includes Dehydration, ANNALEE, COVID, flu, RSV, other viral syndrome, viral pneumonia Admission/Observation Consideration of admission/observation: Escalation of care including admission/observation considered Lab Data MDM Lab Attestation statement: I reviewed the patient's lab results. As above 02/24/24 13:29 02/24/24 13:29 Labs: Lab Results 02/24/24 Range/Units 13:29 WBC 6.8 (4.8-10.8) X10*3/uL RBC 4.70 (4.20-5.50) X10*6/uL Hgb 14.9 (12.0-16.0) g/dl Hct 43.6 (37.0-47.0) % MCV 92.8 (80.0-98.0) fL MCH 31.7 (27.0-33.0) pg MCHC 34.2 (31.0-35.0) g/dl RDW 12.7 (11.0-16.0) % Plt Count 240 (160-400) X10*3/uL MPV 10.7 (9.4-12.3) fL Immature Gran % (Auto) 0.1 (0.0-0.4) % Neut % (Auto) 68.9 (45-73) % Lymph % (Auto) 23.6 (20-40) % [place] % (Auto) 7.3 (2-11) % Eos % (Auto) 0.0 (0-4) % Baso % (Auto) 0.1 (0-2) % Lymph # (Auto) 1.6 (1.2-4.9) X10*3/uL [place] # (Auto) 0.5 (0.1-1.2) X10*3/uL Eos # (Auto) 0.0 (0.0-0.4) X10*3/uL Baso # (Auto) 0.0 (0.0-0.2) X10*3/uL Abs Immat Gran (auto) 0.01 (0.00-0.03) X10*3/uL Absolute Neuts (auto) 4.7 (2.0-8.3) x10*3/uL Absolute Nucleated RBC 0.000 (0.0-0.012) X10*3/uL Nucleated RBC % (auto) 0.0 (0.0-0.2) /100WBC Sodium 142 (135-145) mmol/L Potassium 3.4 (3.3-5.1) mmol/L Chloride 108 (96-108) mmol/L Carbon Dioxide 25 (22-29) mmol/L Anion Gap 12 (12-20) BUN 16 (9-16) mg/dL Creatinine 1.10 (0.5-1.4) mg/dL Estim Creat Clear Calc 46.1 Estimated GFR 49 Random Glucose 88 (60-115) mg/dL Calcium 9.2 D (8.4-10.2) mg/dL Magnesium 2.3 (1.6-2.6) mg/dL Total Bilirubin 0.6 (0.0-1.0) mg/dL AST 37 H (5-31) U/L ALT 25 (0-31) U/L Alkaline Phosphatase 79 (39-117) U/L Total Protein 8.0 (6.5-8.0) g/dL Albumin 4.3 (3.5-5.0) g/dL Independent Historian Clinical information obtained from an independent historian. History obtained from or confirmed by: EMS External Record Review External record reviewed: Outpatient record, Prior outpatient labs and Prior outpatient radiology Tests considered The following testing was considered but not selected: Considered EKG, no chest pain Prescription Management I considered prescription management with: Antiviral Chronic Conditions Patient?s care impacted by: Other (Chronic diarrhea) Critical Care Time Critical Care Time Critical Care Time: No Discharge Plan Discharge Clinical Impression: COVID-19 Patient Disposition: Home, Self-Care Instructions: COVID-19 (Coronavirus Disease 2019) (ED) Additional Instructions: your lab workup today was reassuring, no evidence of dehydation You were found to be COVID-19 POSITIVE today. Rest. Drink plenty of fluids. Do not go out in public while you are not feeling well Take over the counter cold/flu medications as needed for your symptoms. Take Tylenol and/or Motrin as needed for fevers and body aches. Follow up with your doctor as needed Prescriptions: No Action meclizine 25 mg tablet 25 mg PO BID PRN (Reason: dizziness) Qty: 14 0RF ondansetron 4 mg tablet,disintegrating 4 mg PO Q8H PRN (Reason: nausea and vomiting) Qty: 10 0RF loratadine 10 mg tablet 10 mg PO DAILY ergocalciferol (vitamin D2) 1,250 mcg (50,000 unit) capsule 1,250 mcg PO QWEEK Interventions: ED Discharge Assessment Last Done: 02/24/24 16:40 Discharge Date/Time: 02/24/24 16:40 Print Language: [place]
[2024-02-24 13:40] LABS: MANUAL DIFF FLAG NO
[2024-02-24 13:42] LABS: Basophils Percent Auto 0.1 % (0-2); Hematocrit 43.6 % (37.0-47.0); Hemoglobin 14.9 g/dl (12.0-16.0); Imm Gran Abs Auto 0.01 X10*3/uL (0.00-0.03); Imm Gran Pct Auto 0.1 % (0.0-0.4); Lymphocytes Absolute Auto 1.6 X10*3/uL (1.2-4.9); Lymphocytes Percent Auto 23.6 % (20-40); Mean Corpuscular HGB Conc 34.2 g/dl (31.0-35.0); Mean Corpuscular Hemoglobin 31.7 pg (27.0-33.0); Mean Corpuscular Volume 92.8 fL (80.0-98.0); Mean Platelet Volume 10.7 fL (9.4-12.3); Monocytes Absolute Auto 0.5 X10*3/uL (0.1-1.2); Monocytes Percent Auto 7.3 % (2-11); Neutrophils Absolute Auto 4.7 x10*3/uL (2.0-8.3); Neutrophils Percent Auto 68.9 % (45-73); Platelet Count 240 X10*3/uL (160-400); Red Cell Distribution Width 12.7 % (11.0-16.0); White Blood Count 6.8 X10*3/uL (4.8-10.8)
[2024-02-24 14:11] LABS: Alanine Aminotransferase 25 U/L (0-31); Albumin Level 4.3 g/dL (3.5-5.0); Alkaline Phosphatase 79 U/L (39-117); Anion Gap 12 (12-20); Aspartate Amino Transferase 37 U/L (5-31); Bilirubin Total 0.6 mg/dL (0.0-1.0); Blood Urea Nitrogen 16 mg/dL (9-16); Calcium 9.2 mg/dL (8.4-10.2); Carbon Dioxide 25 mmol/L (22-29); Chloride 108 mmol/L (96-108); Creatinine Clr Calc Pharmacy 46.1; Estimated Glomerular Filt Rate 49; Glucose Random 88 mg/dL (60-115); Magnesium 2.3 mg/dL (1.6-2.6); Potassium 3.4 mmol/L (3.3-5.1); Sodium 142 mmol/L (135-145)
[2024-02-24 16:10] VITALS: BP 128/68; PULSE 82; RESP 19; TEMP 37.2; O2SAT 98
[2024-02-24 16:40] VITALS: BP 128/68; PULSE 82; RESP 19; TEMP 37.2; O2SAT 98
== END 2024-02-24 16:40 | disposition home or self-care (01) ==
PROVIDERS: Physician Assistant; Emergency Provider Emergency Medicine; PCP Internal Medicine
DX: U07.1 COVID-19 (principal); R42 Dizziness and giddiness; Z79.899 Other long term (current) drug therapy
CPT/HCPCS: 36415; 80053; 83735; 85025; 99283

== ENCOUNTER 2024-12-13 13:00 | Outpatient (RCR) | payer OTHER, SELFPAY | END 2024-12-13 16:29 | disposition home or self-care (01) | LOC: HO.PT 13:00 | PROVIDERS: PCP Internal Medicine; Visit Provider Internal Medicine | DX: M54.50 Low back pain, unspecified (principal); G89.29 Other chronic pain | CPT/HCPCS: 97110; 97161 ==